=== PATIENT | female | born 1965 | race Hispanic/Latino ===

== ENCOUNTER 2016-10-30 12:02 | Emergency (ER) | payer OTHER ==
[2016-10-30 12:03] VITALS: BMI 29.9
[2016-10-30 12:26] VITALS: TEMP 98.2
[2016-10-30 13:52] LABS: BASO # 0.01 K/mm3 (0.0-2.0); BASO % 0.1 % (0.0-3.0); EOS # 0.2 (0.0-0.7); EOS % 2.5 % (1.5-5.0); GRAN # 4.16 (1.4-6.5); GRAN % 62.2 % (50.0-68.0); HEMATOCRIT 38.1 % (36.0-48.0); LYMPH # 1.9 (1.2-3.4); LYMPH % 28.5 % (22.0-35.0); MEAN CELL VOLUME 84.5 fl (80.0-105.0); MEAN CORPUSCULAR HEMOGLOBIN 27.9 pg (25.0-35.0); MEAN CORPUSCULAR HGB CONC 33.1 g/dl (31.0-37.0); MEAN PLATELET VOLUME 10.9 fl (7.0-11.0); MONO # 0.5 (0.1-0.6); MONO % 6.7 % (1.0-6.0); RED CELL DISTRIBUTION WIDTH 14.5 % (11.5-14.5); WHITE BLOOD COUNT 6.7 10^3/ul (4.5-11.0)
--- NOTE | 2016-10-30 14:23 | ED PDOC ---
Arrival/HPI - General Chief Complaint: Female Genitourinary Time Seen by Provider: 10/30/16 12:34 Historian: Patient - History of Present Illness Narrative History of Present Illness (Text): 10/30/16 14:21 51-year-old female presents today with vaginal bleeding and lower abdominal pain. Patient states last night she developed a cramping sensation in the lower abdomen. Patient states today she noticed some vaginal bleeding. States she is only gone through one pad. She denies chest pain or shortness of breath. Denies fevers or chills. Patient is unsure of her last period but she believes that it was at the end of August. Patient states she has had a positive test in September and has not seen a application developer. Denies dizziness or weakness. No other complaints Time/Duration: Other (1 day) Symptom Onset: Gradual Past Medical History - Provider Review Nursing Documentation Reviewed: Yes - Travel History Have you recently traveled outside [place] w/in the past 3 mons?: No - Infectious Disease Hx of Infectious Diseases: None - Psychiatric Hx Substance Use: No - Surgical History Hx Tubal Ligation: Yes - Anesthesia Hx Anesthesia: Yes Hx Anesthesia Reactions: No Hx Malignant Hyperthermia: No Family/Social History - Physician Review Nursing Documentation Reviewed: Yes Family/Social History: Unknown Family HX Smoking Status: Never Smoked Hx Alcohol Use: No Hx Substance Use: No Allergies/Home Meds Allergies/Adverse Reactions: Allergies No Known Allergies Allergy (Verified 10/30/16 12:10) Review of Systems - Review of Systems Constitutional: absent: Fatigue, Fevers Respiratory: absent: SOB, Cough Cardiovascular: absent: Chest Pain, Palpitations Gastrointestinal: Abdominal Pain. absent: Constipation, Diarrhea, Nausea, Vomiting Genitourinary Female: Vaginal Bleeding. absent: Dysuria, Frequency, Hematuria Musculoskeletal: absent: Arthralgias, Back Pain, Neck Pain Skin: absent: Rash, Pruritis, Other Neurological: absent: Headache, Dizziness Psychiatric: absent: Anxiety, Depression Physical Exam Vital Signs Reviewed: Yes Vital Signs Temp Pulse Resp BP Pulse Ox 10/30/16 17:00 60 15 140/75 100 10/30/16 12:25 98.2 F 66 16 128/84 100 10/30/16 12:05 99.1 F 78 19 112/78 99 Temperature: Afebrile Blood Pressure: Normal Pulse: Regular Respiratory Rate: Normal Appearance: Positive for: Well-Appearing, Non-Toxic, Comfortable Pain Distress: None Mental Status: Positive for: Alert and Oriented X 3 - Systems Exam Head: Present: Atraumatic Mouth: Present: Moist Mucous Membranes Neck: Present: Normal Range of Motion Respiratory/Chest: Present: Clear to Auscultation, Good Air Exchange. No: Respiratory Distress, Accessory Muscle Use Cardiovascular: Present: Regular Rate and Rhythm, Normal S1, S2. No: Murmurs Abdomen: Present: Tenderness (+ lower abdominal tenderness, + suprapubic tenderness. ), Normal Bowel Sounds. No: Distention, Peritoneal Signs, Rebound, Guarding, McBurney's Point Tender Back: Present: Normal Inspection Upper Extremity: Present: Normal Inspection Lower Extremity: Present: Normal Inspection. No: Edema Neurological: Present: GCS=15 Skin: Present: Warm, Dry, Normal Color. No: Rashes Psychiatric: Present: Alert, Oriented x 3 Medical Decision Making ED Course and Treatment: 10/30/16 14:37 Patient is nontoxic well appearing in no distress. Stable vital signs. urine hcg negative CBC: wnl CMP: wnl Beta hCG: wnl TYPE AND SCREEN: B+ Urinalysis: + blood Ultrasound: FINDINGS: UTERUS: Measures approximately 10.1 x 6.0 x 5.2 cm. . Uterus is heterogeneous with multiple fibroids . At least 3 discrete fibroids are noted the 1st measuring 2.7 x 2.6, the 2nd measuring 3.3 x 3.3 x 3.1 and 3rd 3 2.4 x 1.6 x 1.9 ENDOMETRIUM: Measures 3.8 mm in diameter. Unremarkable. CERVIX: Small cervical nabothian cyst. RIGHT OVARY: Right ovary measures approximately 3.5 x 3.9 x 3.8 cm with small cyst containing septation and measures approximately 3.7 x 3.6 x 3.2 cm. . Arterial flow present. LEFT OVARY: Left ovary not visualized FREE FLUID: No significant free fluid noted. OTHER FINDINGS: None. IMPRESSION: Uterine fibroids. Septated right ovarian cyst. Repeat ultrasound during the next menstrual cycle shortly following cessation of menses recommended to assess for resolution. Left ovary not visualized. CT abd/pelvis; FINDINGS: LOWER THORAX: Lung bases are clear. No infiltrate effusion or basilar pneumothorax. Small hiatal hernia. LIVER: Liver exhibits normal size measuring approximately 17 cm in CC dimension. No obvious hepatic mass or collection. GALLBLADDER AND BILE DUCTS: Gallbladder is physiologically distended. No evidence of intraluminal gallbladder calculi. PANCREAS: The pancreas is poorly delineated due to the lack of oral and intravenous contrast material. No gross pancreatic mass, collection calcification or significant ductal dilatation so far as can seen. SPLEEN: Unremarkable. No splenomegaly. ADRENALS: No adrenal lesions. KIDNEYS AND URETERS: Kidneys demonstrate symmetric size. No evidence of nephrolithiasis or hydronephrosis. BLADDER: Urinary bladder is physiologically distended. No evidence of intraluminal urinary bladder calculi. REPRODUCTIVE: The uterus bulky and enlarged. Rule out underlying uterine fibroids. . The small hyperdense focus seen in the region of the cervix and another possibly in the region of the right posterior vagina region. Right adnexae appears enlarged measuring approximately 4 cm x 3.6 cm exhibit a Hounsfield units in the mid 20s. . This could represent a relatively large right adnexal complex cyst. Rule out hemorrhagic cyst or possibly endometrioma versus solid mass. . Follow- up pelvic ultrasound is recommended for further evaluation. . APPENDIX: Appendix not seen with certainty. No obvious inflammatory changes right lower quadrant of the abdomen. BOWEL: Evaluation of the bowel is limited due to the lack of oral contrast material. The stomach is incompletely distended which may account for slight thick-walled appearance. Gastritis not excluded. Visualized loops of small bowel exhibit normal contour and caliber. No evidence of acute mechanical small bowel obstruction. Moderate amount of stool seen throughout the colon consistent with fecal retention/constipation. PERITONEUM: Unremarkable. No fluid collection. No free air. Tiny fat containing umbilical hernia. LYMPH NODES: Unremarkable. No enlarged lymph nodes. VASCULATURE: Unremarkable. No aortic aneurysm. BONES: No fracture or destructive lesion. OTHER FINDINGS: None. IMPRESSION: Enlarged right adnexa on possibly representing a complex cyst or endometrioma however solid mass lesion not excluded. . Enlarged bulky uterus; rule out uterine fibroids. Questionable hyperdense cervical nabothian cyst. There is another hyperdense focus possibly in the posterior vagina region. Pelvic ultrasound recommended for further evaluation of all of these findings. Appendix not seen with complete certainty on this study. Findings consistent with constipation. Discussed all the results the patient. advised patient of negative test by blood. ADVISED patient that she will need f/u US during next menstrual cycle to re-evaluated septated ovarian cyst. advised f/u with the quality control auditor, GI and PMD within the next 2 days. advised immediate return if symptoms worsen,persist or if new symptoms develop. advised patient to return immediately if she has continued pain, especially if she develops pain in the RLQ. discussed signs and symptoms of appendicitis with the patient in depth. Impression: Vaginal bleeding, ovarian cyst, abdominal pain motrin every 4 hours as needed for pain Increase fluids Followup with the [facility] within the next 2 days Follow up with the GI doctor and primary care physician within the next 2 days. Return immediately if symptoms worsen persist or if new symptoms develop: High fevers, heavy bleeding, severe abdominal pain, vomiting, diarrhea, dizziness or weakness or any other concerning symptoms develop. YOU WILL NEED A REPEAT ULTRASOUND DURING THE NEXT MENSTRUAL CYCLE TO FURTHER EVALUATE THE SEPTATED OVARIAN CYST 10/30/16 17:41 10/30/16 17:57 - Lab Interpretations Lab Results: 10/30/16 13:30 10/30/16 13:30 Lab Results 10/30/16 14:50: Urine Color Light red, Urine Appearance Sl cloudy, Urine pH 6.0 , Ur Specific [place] 1.015, Urine Protein Negative, Urine Glucose (UA) Negative , Urine Ketones Negative, Urine Blood Large H, Urine Nitrate Negative, Urine Bilirubin Negative, Urine Urobilinogen 0.2, Ur Leukocyte Esterase Trace H, Urine RBC Tntc, Urine WBC 0 - 2, Ur Epithelial Cells 0 - 2, Urine Bacteria Few 10/30/16 13:45: Blood Type B POSITIVE, Antibody Screen Negative, BBK History Checked No verified bt 10/30/16 13:30: WBC 6.7, RBC 4.51, Hgb 12.6, Hct 38.1, MCV 84.5, MCH 27.9, MCHC 33.1, RDW 14.5, Plt Count 233, MPV 10.9, Gran % 62.2, Lymph % (Auto) 28.5, [place] % (Auto) 6.7 H, Eos % (Auto) 2.5, Baso % (Auto) 0.1, Gran # 4.16, Lymph # 1.9, [place] # 0.5, Eos # 0.2, Baso # 0.01 10/30/16 13:30: Beta HCG, Quant < 2.39 10/30/16 13:30: Sodium 140, Potassium 4.8, Chloride 104, Carbon Dioxide 26, Anion Gap 15, BUN 12, Creatinine 0.6, Est GFR ( Amer) > 60, Est GFR (Non- Af Amer) > 60, Random Glucose 88, Calcium 9.3, Total Bilirubin 0.7, AST 35, ALT 29, Alkaline Phosphatase 54, Total Protein 7.5, Albumin 4.2, Globulin 3.3, Albumin/Globulin Ratio 1.3 - RAD Interpretation Radiology Orders: 10/30/16 12:41 TRANSVAGINAL [US] Stat 10/30/16 17:02 ABD & PELVIS W/O PO OR IV CONT [CT] Stat Disposition/Present on Arrival - Present on Arrival Any Indicators Present on Arrival: No History of DVT/PE: No History of Uncontrolled Diabetes: No Urinary Catheter: No History of Decub. Ulcer: No History Surgical Site Infection Following: None - Disposition Have Diagnosis and Disposition been Completed?: Yes Diagnosis: Vaginal bleeding, Abdominal pain, Ovarian cyst Disposition: HOME/ ROUTINE Disposition Time: 17:39 Patient Plan: Discharge Patient Problems: Current Active Problems Problem Status Onset Abdominal pain Acute Ovarian cyst Acute Vaginal bleeding Acute Condition: GOOD Discharge Instructions (ExitCare): Ovarian Cyst (ED), Abdominal Pain (ED) Additional Instructions: motrin every 4 hours as needed for pain Increase fluids Followup with the [facility] LEATHER within the next 2 days Follow up with the GI doctor and primary care physician within the next 2 days. Return immediately if symptoms worsen persist or if new symptoms develop: High fevers, heavy bleeding, severe abdominal pain, vomiting, diarrhea, dizziness or weakness or any other concerning symptoms develop. YOU WILL NEED A REPEAT ULTRASOUND DURING THE NEXT MENSTRUAL CYCLE TO FURTHER EVALUATE THE SEPTATED OVARIAN CYST Prescriptions: Ibuprofen [Motrin] 600 mg PO Q6H PRN #20 tab PRN Reason: pain/fever reduction Referrals: Patricia Lay MD [Primary Care Provider] - Follow up with primary Jordan Young [Medical Doctor] - Follow up with primary Tanvi Singh MD [Staff Provider] - Follow up with primary Kamari Mcmahon DO [Staff Provider] - Follow up with primary Forms: [email or web address] (Mongolian), WORK NOTE
[2016-10-30 14:39] LABS: ALB/GLOB RATIO 1.3 (1.1-1.8); ALKALINE PHOSPHATASE 54 U/L (38-133); ALT/SGPT 29 U/L (7-56); AST/SGOT 35 U/L (15-39); BILIRUBIN,TOTAL 0.7 mg/dL (0.2-1.3); BLOOD UREA NITROGEN 12 mg/dL (7-21); CALCIUM 9.3 mg/dL (8.4-10.5); CARBON DIOXIDE 26 mmol/L (21-33); CHLORIDE 104 mmol/L (98-107); GFR AFRICAN-AMERICAN > 60; GLUCOSE,RANDOM 88 mg/dL (70-110); POTASSIUM 4.8 mmol/L (3.6-5.0); SODIUM 140 mmol/L (132-148); TOTAL PROTEIN 7.5 g/dL (5.8-8.3)
[2016-10-30 14:59] LABS: URINE BILIRUBIN NEGATIVE (NEGATIVE); URINE BLOOD LARGE (NEGATIVE); URINE GLUCOSE (UA) NEGATIVE (NEGATIVE); URINE KETONE NEGATIVE (NEGATIVE); URINE LEUKOCYTE ESTERASE TRACE Leu/uL (NEGATIVE); URINE PROTEIN NEGATIVE mg/dL (<30 mg/dL); URINE UROBILINOGEN 0.2 E.U./dL (<1 E.U./dL)
[2016-10-30 15:01] LABS: URINE APPEARANCE SL CLOUDY (CLEAR); URINE COLOR LIGHT RED (YELLOW)
[2016-10-30 15:09] LABS: URINE BACTERIA FEW (NEG); URINE EPITHELIAL CELLS 0 - 2 /hpf (0-5); URINE RBC TNTC /hpf (0-2); URINE WBC 0 - 2 /hpf (0-6)
--- NOTE | 2016-10-30 15:59 | US ---
HISTORY: pain/bleeding COMPARISON: None available. TECHNIQUE: Transabdominal/transvaginal study performed. FINDINGS: UTERUS: Measures approximately 10.1 x 6.0 x 5.2 cm. . Uterus is heterogeneous with multiple fibroids . At least 3 discrete fibroids are noted the 1st measuring 2.7 x 2.6, the 2nd measuring 3.3 x 3.3 x 3.1 and 3rd 3 2.4 x 1.6 x 1.9 ENDOMETRIUM: Measures 3.8 mm in diameter. Unremarkable. CERVIX: Small cervical nabothian cyst. RIGHT OVARY: Right ovary measures approximately 3.5 x 3.9 x 3.8 cm with small cyst containing septation and measures approximately 3.7 x 3.6 x 3.2 cm. . Arterial flow present. LEFT OVARY: Left ovary not visualized FREE FLUID: No significant free fluid noted. OTHER FINDINGS: None. IMPRESSION: Uterine fibroids. Septated right ovarian cyst. Repeat ultrasound during the next menstrual cycle shortly following cessation of menses recommended to assess for resolution. Left ovary not visualized.
--- NOTE | 2016-10-30 17:57 | CT ---
PROCEDURE: CT abdomen pelvis of dated 10/30/2016 HISTORY: Abdominal pain COMPARISON: None. TECHNIQUE: Contiguous axial images of the abdomen and pelvis performed without oral or intravenous contrast material. . Coronal and Sagittal reformats generated. This CT exam was performed using one or more of the following dose reduction techniques: Automated exposure control, adjustment of the mA and/or kV according to patient size, and/or use of iterative reconstruction technique. Total exam DLP = 368.58 mGy-cm. FINDINGS: LOWER THORAX: Lung bases are clear. No infiltrate effusion or basilar pneumothorax. Small hiatal hernia. LIVER: Liver exhibits normal size measuring approximately 17 cm in CC dimension. No obvious hepatic mass or collection. GALLBLADDER AND BILE DUCTS: Gallbladder is physiologically distended. No evidence of intraluminal gallbladder calculi. PANCREAS: The pancreas is poorly delineated due to the lack of oral and intravenous contrast material. No gross pancreatic mass, collection calcification or significant ductal dilatation so far as can seen. SPLEEN: Unremarkable. No splenomegaly. ADRENALS: No adrenal lesions. KIDNEYS AND URETERS: Kidneys demonstrate symmetric size. No evidence of nephrolithiasis or hydronephrosis. BLADDER: Urinary bladder is physiologically distended. No evidence of intraluminal urinary bladder calculi. REPRODUCTIVE: The uterus bulky and enlarged. Rule out underlying uterine fibroids. . The small hyperdense focus seen in the region of the cervix and another possibly in the region of the right posterior vagina region. Right adnexae appears enlarged measuring approximately 4 cm x 3.6 cm exhibit a Hounsfield units in the mid 20s. . This could represent a relatively large right adnexal complex cyst. Rule out hemorrhagic cyst or possibly endometrioma versus solid mass. . Follow-up pelvic ultrasound is recommended for further evaluation. . APPENDIX: Appendix not seen with certainty. No obvious inflammatory changes right lower quadrant of the abdomen. BOWEL: Evaluation of the bowel is limited due to the lack of oral contrast material. The stomach is incompletely distended which may account for slight thick-walled appearance. Gastritis not excluded. Visualized loops of small bowel exhibit normal contour and caliber. No evidence of acute mechanical small bowel obstruction. Moderate amount of stool seen throughout the colon consistent with fecal retention/constipation. PERITONEUM: Unremarkable. No fluid collection. No free air. Tiny fat containing umbilical hernia. LYMPH NODES: Unremarkable. No enlarged lymph nodes. VASCULATURE: Unremarkable. No aortic aneurysm. BONES: No fracture or destructive lesion. OTHER FINDINGS: None. IMPRESSION: Enlarged right adnexa on possibly representing a complex cyst or endometrioma however solid mass lesion not excluded. . Enlarged bulky uterus; rule out uterine fibroids. Questionable hyperdense cervical nabothian cyst. There is another hyperdense focus possibly in the posterior vagina region. Pelvic ultrasound recommended for further evaluation of all of these findings. Appendix not seen with complete certainty on this study. Findings consistent with constipation.
[2016-10-30 19:07] VITALS: BP 130/82; PULSE 75; RESP 16; O2SAT 98
== END 2016-10-30 18:20 | disposition home or self-care (01) ==
LOC: ED 12:02
DX: N83.201 Unspecified ovarian cyst, right side (principal); N93.9 Abnormal uterine and vaginal bleeding, unspecified; R10.9 Unspecified abdominal pain